=== PATIENT | male | born 1970 | race African-American/Black ===

== ENCOUNTER 2016-11-19 07:33 | Day surgery (SDC) | payer OTHER ==
[2016-11-16 10:47] LABS: BASOPHILS 0.5 %; BASOPHILS ABSOLUTE 0.04 10/3/uL (0.0-0.16); EOSINOPHILS 2.1 %; EOSINOPHILS ABSOLUTE 0.17 10/3/uL (0.0-0.53); HEMATOCRIT 32.2 % (40.0-51.0); HEMOGLOBIN 10.3 g/dL (13.6-17.8); IMMATURE GRANULOCYTES 0.1 %; IMMATURE GRANULOCYTES ABSOLUTE 0.01 10/3/uL (0.0-0.11); LYMPHOCYTES 23.8 %; MANUAL DIFF NO %; MEAN CORPUSCULAR HEMOGLOB 27.8 pg (26.0-34.0); MEAN PLATELET VOLUME 9.4 fL (9.2-13.0); MONOCYTES 7.7 %; MONOCYTES ABSOLUTE 0.61 10/3/uL (0.21-1.20); NEUTROPHILS 65.8 %; NEUTROPHILS ABSOLUTE 5.24 10/3/uL (2.02-8.40); PLATELET COUNT 336 10/3/uL (150-400); RBC DISTRIBUTION WIDTH 14.4 % (12.0-16.0)
[~2016-11-19] VITALS: Ht 167.6 cm; Wt 69.9 kg
--- NOTE | ~2016-11-19 | OP ---
Record Of Operation [facility] [address] [place]. [address] NAME: LEATHA KELLY : 68 STATUS : [facility]#: [id number] AGE: 46 ADM/REG DATE : 11/19/16 MR#: [id number] REPORT SERV DATE: 11/19/16 DICTATED BY: MINO CHAKRABORTY DATE: 11/19/16 REPORT STATUS : Draft TRANSCRIBED BY: MODL DATE: 11/19/16 DATE OF PROCEDURE: 11/19/2016 PREOPERATIVE DIAGNOSES: 1. History of bleeding sigmoid colon cancer with need for central IV access. 2. History of anemia. POSTOPERATIVE DIAGNOSES: 1. History of bleeding sigmoid colon cancer with need for central IV access. 2. History of anemia. PROCEDURE: Left subclavian vein Port-A-Cath placement with intraoperative fluoroscopy. ANESTHESIA: General. ANESTHESIA: MAC. DAIRY GRAZER: Yadiel. COMPLICATIONS: None. DRAINS: None. ESTIMATED BLOOD LOSS: 10 mL. FINDINGS: Under fluoroscopy, the wire first went into the coronary sinus and then the left IJ and then into the central venous system for completion of the Port-A-Cath. OPERATIVE TECHNIQUE: The patient was brought to the operating room and placed on the table in supine position. He had preoperative IV antibiotics. He had sequential hose in place. He voided prior to procedure. He had adequate IV sedation, was prepped and draped in sterile fashion, and a time-out was completed. Local anesthesia was instilled to the left subclavian space. A needle was used to access the left subclavian vein and a wire was passed via Seldinger technique into the central venous system. The first attempt went into what appeared to be a coronary sinus or accessory vein and was removed and additional more lateral access, accessed the vein again, and the wire was then passed and noted to be in the left subcostal left internal jugular. It was then passed into the central venous system into the SVC under fluoroscopy. A transverse incision was then made at the wire insertion site and a pocket was created inferiorly using blunt dissection. A preassembled and flush catheter was then secured to the chest wall with interrupted three-point fixation. The catheter was then cut to length with the aid of fluoroscopy. The dilator and sheath were then passed over the wire and the wire and dilator removed. The catheter was then fully advanced through the sheath and the reservoir was then accessed and noted to aspirate and flush easily. The catheter was noted to be in the SVC right atrial junction. There was no evidence of any other abnormalities. At this point, the catheter was felt to be in good position. There was no evidence of any bleeding. The subcutaneous tissues were Record Of Operation [address] [place]. [address] NAME: LEATHA KELLY : 68 STATUS : [facility]#: [id number] AGE: 46 ADM/REG DATE : 11/19/16 MR#: [id number] REPORT SERV DATE: 11/19/16 DICTATED BY: MINO CHAKRABORTY DATE: 11/19/16 REPORT STATUS : Draft TRANSCRIBED BY: DILLON DATE: 11/19/16 reapproximated using a running 3-0 Vicryl suture followed by running Monocryl subcuticular stitch. Dermabond was applied, and the patient was taken to the recovery room in stable condition. All sponge and needle counts reported correct. /DILLON Mino Chakraborty M.D. / [id number] CC: Dayanna Leonardo M.D. Benjamin R Nadeau, MD
[~2016-11-19 07:33] MED LIST: *DENIES; ADVIL PO; MIRALAX POWDER1 PKT PO; NORCO1 TAB PO; ZOFRAN ODT4 MG PO; ZOFRAN ODT4 MG SL
== END 2016-11-19 17:00 | disposition home or self-care (01) ==
LOC: SDC 07:33
PROVIDERS: Surgery
PROC: 02HV33Z Insertion of Infusion Device into Superior Vena Cava, Percutaneous Approach (ICD-10-PCS; principal; 2016-11-19 09:00)
DX: C18.7 Malignant neoplasm of sigmoid colon (principal); D63.0 Anemia in neoplastic disease
CPT/HCPCS: 71010; 77001; 85025; J0690; J2250; J3010